=== PATIENT | female | born 1935 | race Native Hawaiian/Other Pacific Islander ===

== ENCOUNTER → 2017-05-18 | Outpatient (CLI) | payer MEDICARE, OTHER ==
[~2017-05-18] MED LIST: ASPI-891 PO; DILT240C3 PO; LISI-622 PO; LOVA40TA2 PO; OMEP40CA12 PO
== END | disposition home or self-care (01) ==
LOC: RADMN 16:04
PROVIDERS: ATTEND Family Medicine
DX: J98.11 Atelectasis (principal); I70.0 Atherosclerosis of aorta
CPT/HCPCS: 71020

== ENCOUNTER → 2017-10-06 | Outpatient (CLI) | payer MEDICARE, OTHER | END | disposition home or self-care (01) | LOC: RADPV 08:39 | PROVIDERS: ATTEND Family Medicine | DX: M79.89 Other specified soft tissue disorders (principal) ==